=== PATIENT | female | born 1980 | race Caucasian/White ===

== ENCOUNTER 2017-01-19 15:55 | Emergency (ER) | payer MEDICAID ==
[~2017-01-19] VITALS: Wt 97.4 kg
--- NOTE | 2017-01-19 17:20 | ERD ---
ER Documentation Chief Complaint Chief Complaint HIVES X3 DAYS, FEVER, NO SOB HPI 36-year-old female, previously healthy, presents to the emergency department complaining of 4 days with sore throat, generalized arthralgia and fever. 3 days ago she took amoxicillin self prescribed, [place], the day after that she developed a generalized erythematous and pruritic rash. The patient has been taking Benadryl with mild improvement of the symptoms, last dose this morning. ROS SYSTEMIC symptoms: Subjective fever, chills, no night sweats, no weight loss EYE symptoms: No blurred vision, no eye discharge OTOLARYNGEAL symptoms: No hearing loss. No ear pain, + sore throat CARDIOVASCULAR symptoms: No chest pain or discomfort, no palpitations. PULMONARY symptoms: No dyspnea, no cough, no wheezing. GASTROINTESTINAL symptoms: No abdominal pain, no nausea, no vomiting, no diarrhea MUSCULOSKELETAL symptoms: No arthralgias, no muscle aches. NEUROLOGY symptoms: No confusion, no syncope, no numbness or tingling. SKIN: Per HPI Medications Home Meds Active Scripts Acetaminophen* (Tylenol*) 325 Mg Tablet, 1 TAB PO Q6 Y for FEVER, #20 TAB Prov:EVANS MARTÍNEZ MD 01/19/17 Azithromycin* (Zithromax*) 250 Mg Tablet, 250 MG PO .ZPACK DIRECTED, #6 TAB TAKE 500 MG (2 TABS) THE FIRST DAY THEN 250 MG (1 TAB) DAYS 2-5 Prov:EVANS MARTÍNEZ MD 01/19/17 Prednisone* (Prednisone*) 20 Mg Tab, 40 MG PO DAILY for 4 Days, TAB Prov:EVANS MARTÍNEZ MD 01/19/17 Allergies Allergies: Coded Allergies: No Known Allergies (Verified Allergy, Unknown, 01/19/17) Physical Exam Vitals Vital Signs Date Time Temp Pulse Resp B/P Pulse Ox O2 Delivery O2 Flow Rate FiO2 01/19/17 19:14 99.1 110 26 118/66 97 Room Air 01/19/17 15:57 101.0 114 18 138/91 96 Physical Exam Const: Alert, hydrated, afebrile, in mild distress due to pruritus. Head: Atraumatic Eyes: Normal Conjunctiva ENT: No lip or tongue swelling. Erythematous oropharynx, tonsils enlarged with exudates. Normal External Ears. Neck: Full range of motion..~ No meningismus. Resp: Clear to auscultation bilaterally Cardio: Regular rate and rhythm, no murmurs Abd: Soft, non tender, non distended. Normal bowel sounds Skin: Generalized urticaria Back: No midline or flank tenderness Ext: No cyanosis, or edema Neur: Awake and alert Results 24 hrs Current Medications Medications (Trade) Dose Ordered Sig/Faheem Route PRN Reason Start Time Stop Time Status Last Admin Dose Admin Methylprednisolone Sodium Succinate (Solu-Medrol) 125 mg ONCE ONCE IM 01/19/17 17:30 01/19/17 17:31 DC 01/19/17 18:05 Diphenhydramine HCl (Benadryl) 25 mg ONCE ONCE IM 01/19/17 17:30 01/19/17 17:31 DC 01/19/17 18:05 Ibuprofen (Motrin) 600 mg ONCE ONCE PO 01/19/17 17:30 01/19/17 17:31 DC 01/19/17 18:06 Procedures/MDM 36y/o female patient unremarkable medical history, presents to the ED c/o upper respiratory symptoms for 4 days and a rash for 3 days after taking amoxicillin from [facility] [place]. Vital signs stable, mild fever and mild tachycardia, Physical exam unremarkable except for generalized urticaria. Differential diagnosis include but not limited to: Urticaria, allergic reaction, contact dermatitis. No suspicion at this time for anaphylactic shock or angioedema. Pertinent Data: UA: Physical examination and clinical presentation consistent most likely with allergic reaction to medication. During the ED course the patient remained stable, no new complaints. received treatment with Solu-Medrol and Benadryl IM presenting overall improvement of the symptoms. Results and clinical impression discussed with patient who agrees with management. The patient is stable to be treated outpatient and will be discharged home with a Rx for prednisone 3 days. Side effects of prescribed medications (headache, rash, nausea, vomiting, diarrhea) were reviewed. Side effects of prescribed NSAID medication (GI distress, edema, bleeding, HTN) were reviewed. The patient was instructed to follow up with the primary care provider in the next 48h. If symptoms persist, worsen or new symptoms develop, then patient should return to the ED immediately. Instructions explained and given to patient in Frisian with acknowledgment and demonstrated understanding. Disclaimer: Inadvertent spelling and grammatical errors are likely due to EHR/ dictation software use and do not reflect on the overall quality of patient care. Also, please note that the electronic time recorded on this note does not necessarily reflect the actual time of the patient encounter. Departure Diagnosis: Primary Impression: Allergic urticaria Additional Impression: Acute suppurative tonsillitis Condition: Stable Additional Instructions: Call your primary care doctor TOMORROW for an appointment during the next 1-2 days. See the doctor sooner or return here if your condition worsens before your appointment time. Thank you very much for allowing us to participate in your care. Your health and safety is our top priority at [facility]. Have prescriptions filled and follow precisely the directions on the label. Follow-up with primary care provider during the next 4 days and bring all the information and medications prescribed. If illness has not improved in 2 days, then make an appointment with primary care provider. If the provider is unavailable, return to the Emergency Department immediately. VEANS MARTÍNEZ MD Jan 19, 2017 17:20
[2017-01-19] MEDS ORDERED: METHYLPREDNISOLONE 125 MG INJ IM ONE (17:30)
[2017-01-19] MEDS ORDERED: IBUPROFEN 600 MG TAB PO ONE (17:30)
[2017-01-19] MEDS ORDERED: DIPHENHYDRAMINE 50 MG INJ IM ONE (17:30)
[2017-01-19] MEDS ORDERED: AZIT250T94 PO (19:13)
[2017-01-19] MEDS ORDERED: PRED20TA PO (19:13)
[2017-01-19 19:14] VITALS: BP 118/66; PULSE 110; RESP 26; TEMP 99.1
[2017-01-19] MEDS ORDERED: ACET325T33 PO (19:21)
== END 2017-01-19 19:41 | disposition home or self-care (01) ==
LOC: FTE 15:55
DX: L50.0 Allergic urticaria (principal); J03.90 Acute tonsillitis, unspecified
CPT/HCPCS: 96372; J1200; J2930; Z7502; Z7610